=== PATIENT | female | born 1940 | race Caucasian/White ===

== ENCOUNTER 2018-10-28 10:19 | Observation (INO) | payer MEDICARE, OTHER ==
[2018-10-28] MEDS ORDERED: Nitroglycerin 0.4 MG Tab.SL ONE (10:20)
[2018-10-28] MEDS ORDERED: LORazepam 0.5 MG Tab PO ONE (10:40)
[2018-10-28] MEDS ORDERED: Sodium Chloride 0.9% 10 ML Syringe FLUSH PRN (10:43)
[2018-10-28] MEDS ORDERED: LORazepam 0.5 MG Tab ONE (10:53)
--- NOTE | 2018-10-28 11:20 | CR ---
DATE OF SERVICE: 10/28/18 CLINICAL DATA: Chest pain PORTABLE CHEST: No priors. The patient has taken a very poor inspiration. The heart size is at the upper limits of normal. It is probably accentuated by the poor inspiration and projection. The aorta is ectatic. The lungs are clear. No pneumothorax. No pleural effusions. [id number] [facility]
[2018-10-28] MEDS ORDERED: Ondansetron 4 MG/2 ML SDV IV PRN (11:31)
--- NOTE | 2018-10-28 11:44 | EDM.PDOC ---
ED HPI GENERAL MEDICAL PROBLEM - General Chief Complaint: Cardiovascular Problem Stated Complaint: CHEST PALPATATION AND PRESSURE Time Seen by Provider: 10/28/18 10:45 Source of Information: Reports: Patient, EMS History Limitations: Reports: No Limitations - History of Present Illness INITIAL COMMENTS - FREE TEXT/NARRATIVE: This is a 77yo F here for chest pain and palpitations. She has had palpitations her whole life with history of Atrial fibrillation on her holter in the past. She does see cardiology and last saw one a year ago. She states her palpitations was very severe where she had chest pain and has not had this severity in a long time or that she can remember. She states she had a headache and dizziness as well. Denies other health concerns. Patient brought in by EMS. Onset: Sudden Onset Date: 10/28/18 Onset Time: 07:30 Duration: Hour(s): Location: Reports: Chest Quality: Reports: Sharp Severity: Severe Improves with: Reports: None Worsens with: Reports: None - Related Data Allergies Allergy/AdvReac Type Severity Reaction Status Date / Time No Known Allergies Allergy Verified 10/28/18 11:15 Home Meds: Home Meds Diltiazem HCl [Cartia Xt] 180 mg PO DAILY 10/28/18 [History] HCTZ/Triamterene [Dyazide 25-37.5 MG] 1 cap PO DAILY 10/28/18 [History] Metoprolol Succinate [Toprol Xl] 25 mg PO DAILY 10/28/18 [History] Nitroglycerin 0.4 mg SL ASDIRECTED 10/28/18 [History] ED ROS GENERAL - Review of Systems Review Of Systems: ROS reveals no pertinent complaints other than HPI. ED EXAM, GENERAL - Physical Exam Exam: See Below Exam Limited By: No Limitations General Appearance: Alert, WD/WN, Mild Distress Eye Exam: Bilateral Eye: EOMI, PERRL Ears: Normal External Exam Nose: Normal Inspection Throat/Mouth: Normal Inspection Head: Atraumatic, Normocephalic Neck: Normal Inspection Respiratory/Chest: No Respiratory Distress, Lungs Clear, Normal Breath Sounds Cardiovascular: Normal Peripheral Pulses, Regular Rate, Rhythm Peripheral Pulses: 2+: Dorsalis Pedis (L), Dorsalis Pedis (R) GI/Abdominal: Normal Bowel Sounds Back Exam: Normal Inspection Extremities: Normal Inspection Neurological: Alert, Oriented, CN II-XII Intact Psychiatric: Normal Affect, Normal Mood Skin Exam: Warm, Dry, Intact Course - Vital Signs Last Recorded V/S: Last Vital Signs Temp 36.8 C 10/28/18 11:27 Pulse 62 10/28/18 11:27 Resp 18 10/28/18 11:27 BP 171/83 H 10/28/18 11:27 Pulse Ox 99 10/28/18 11:27 - Orders/Labs/Meds Orders: Active Orders 24 hr Category Date Time Status Patient Status [ADT] Routine ADT 10/28/18 11:31 Ordered EKG Documentation Completion [RC] ASDIRECTED Care 10/28/18 10:43 Active Oxygen Therapy [RC] PRN Care 10/28/18 11:31 Ordered Up ad Ingrid [RC] ASDIRECTED Care 10/28/18 11:31 Ordered VTE/DVT Education [RC] Per Unit Routine Care 10/28/18 11:31 Ordered Vital Signs [RC] Q4H Care 10/28/18 11:31 Ordered Heart Healthy Diet [DIET] Diet 10/28/18 Dinner Ordered CBC WITH AUTO DIFF [HEME] AM Lab 10/29/18 05:11 Ordered COMPREHENSIVE METABOLIC PN,CMP [CHEM] AM Lab 10/29/18 05:11 Ordered TROPONIN I [CHEM] Routine Lab 10/28/18 13:40 Ordered TROPONIN I [CHEM] Timed Lab 10/28/18 16:40 Ordered TROPONIN I [CHEM] Timed Lab 10/28/18 20:40 Ordered TROPONIN I [CHEM] Timed Lab 10/29/18 10:40 Ordered Ondansetron [Zofran] Med 10/28/18 11:31 Ordered 4 mg IV Q4H PRN Sodium Chloride 0.9% [Saline Flush] Med 10/28/18 10:43 Active 10 ml FLUSH ASDIRECTED PRN Peripheral IV Insertion Adult [OM.PC] Routine Oth 10/28/18 10:43 Ordered Resuscitation Status Routine Resus Stat 10/28/18 11:31 Ordered Medication Orders Ondansetron HCl (Zofran) 4 mg IV Q4H PRN PRN Reason: Nausea/Vomiting Sodium Chloride (Saline Flush) 10 ml FLUSH ASDIRECTED PRN PRN Reason: Keep Vein Open Last Admin: 10/28/18 10:40 Dose: 10 ml Labs: Laboratory Tests 01/10/19 01/10/19 Range/Units 10:40 10:40 WBC 5.1 (4.0-11.0) K/uL RBC 5.00 (3.80-5.80) M/uL Hgb 13.4 (11.5-16.5) g/dL Hct 41.0 (37.0-47.0) % MCV 82 (76-96) fL MCH 26.8 L (27.0-32.0) pg MCHC 32.7 (31.0-35.0) g/dL RDW 15.8 (11.0-16.0) % Plt Count 286 (150-500) K/uL MPV 9.5 (6.0-10.0) fL Neut % (Auto) 66.0 (45.0-70.0) % Lymph % (Auto) 25.0 (20.0-40.0) % [place] % (Auto) 8.0 (3.0-10.0) % Eos % (Auto) 0.6 L (1.0-5.0) % Baso % (Auto) 0.4 (0.0-0.5) % Neut # (Auto) 3.38 (2.00-7.50) K/uL Lymph # (Auto) 1.28 L (1.50-4.00) K/uL [place] # (Auto) 0.41 (0.20-0.80) K/uL Eos # (Auto) 0.03 L (0.04-0.40) K/uL Baso # (Auto) 0.02 (0.02-0.10) K/uL Sodium 141 (136-145) mmol/L Potassium 3.9 (3.5-5.1) mmol/L Chloride 102 (98-107) mmol/L Carbon Dioxide 26.9 (21.0-32.0) mmol/L Anion Gap 16.0 H (5.0-15.0) mmol/L BUN 14 (8-26) mg/dL Creatinine 1.00 (0.55-1.02) mg/dL Est Cr Clr Drug Dosing TNP Estimated GFR (MDRD) 54 L (>60) MLS/MIN BUN/Creatinine Ratio 14.0 (6-25) Glucose 207 H (74-100) mg/dL Calcium 9.1 (8.5-10.1) mg/dL Total Bilirubin 0.4 (0.0-1.0) mg/dL AST 19 (15-37) U/L ALT 32 (12-78) U/L Alkaline Phosphatase 80 (46-116) U/L Troponin I < 0.017 (0.000-0.060) ng/mL Total Protein 7.5 (6.4-8.2) g/dL Albumin 3.6 (3.4-5.0) g/dL Globulin 3.9 (2.2-4.2) g/dL Albumin/Globulin Ratio 0.9 (0.8-2.0) TSH, Ultra Sensitive 2.521 (0.358-3.740) uIU/mL Meds: Medications Generic Name Dose Route Start Last Admin Trade Name Freq PRN Reason Stop Dose Admin Ondansetron HCl 4 mg 10/28/18 11:31 Zofran IV Q4H PRN Nausea/Vomiting Sodium Chloride 10 ml 10/28/18 10:43 10/28/18 10:40 Saline Flush FLUSH 10 ml ASDIRECTED PRN Administration Keep Vein Open Discontinued Medications Generic Name Dose Route Start Last Admin Trade Name Freq PRN Reason Stop Dose Admin Lorazepam Confirm 10/28/18 10:53 10/28/18 10:54 Ativan Administered 10/28/18 10:54 Not Given Dose 0.5 mg .ROUTE .STK-MED ONE Lorazepam 0.5 mg 10/28/18 10:40 10/28/18 10:54 Ativan PO 10/28/18 10:41 0.5 mg ONETIME ONE Administration Departure - Departure Time of Disposition: 11:45 Disposition: Refer to Observation Condition: Undetermined Clinical Impression: Heart palpitations, History of palpitations, Dizziness, Hypertensive urgency Hypertensive heart disease Qualifiers: Heart failure presence: unspecified whether heart failure present Qualified Code(s): I11.9 - Hypertensive heart disease without heart failure Chest pain Qualifiers: Chest pain type: other chest pain Qualified Code(s): R07.89 - Other chest pain ; R07.8 - Other chest pain Headache Qualifiers: Headache type: unspecified Headache chronicity pattern: acute headache Intractability: intractable Qualified Code(s): R51 - Headache Referrals: PCP,None [Primary Care Provider] - - Problem List & Annotations (1) Chest pain SNOMED Code(s): 25694559 Code(s): R07.9 - CHEST PAIN, UNSPECIFIED Status: Acute Priority: High Current Visit: Yes Qualifiers: Chest pain type: other chest pain Qualified Code(s): R07.89 - Other chest pain; R07.8 - Other chest pain (2) Dizziness SNOMED Code(s): 345194515, 685383060 Code(s): R42 - DIZZINESS AND GIDDINESS Status: Acute Priority: High Current Visit: Yes (3) Headache SNOMED Code(s): 13919616 Code(s): R51 - HEADACHE Status: Acute Priority: High Current Visit: Yes Qualifiers: Headache type: unspecified Headache chronicity pattern: acute headache Intractability: intractable Qualified Code(s): R51 - Headache (4) Heart palpitations SNOMED Code(s): 42083021 Code(s): R00.2 - PALPITATIONS Status: Acute Priority: High Current Visit: Yes (5) History of palpitations SNOMED Code(s): 058576039 Code(s): Z87.898 - PERSONAL HISTORY OF OTHER SPECIFIED CONDITIONS Status: Acute Priority: High Current Visit: Yes (6) Hypertensive heart disease SNOMED Code(s): 63633262 Code(s): I11.9 - HYPERTENSIVE HEART DISEASE WITHOUT HEART FAILURE Status: Acute Priority: High Current Visit: Yes Qualifiers: Heart failure presence: unspecified whether heart failure present Qualified Code(s): I11.9 - Hypertensive heart disease without heart failure (7) Hypertensive urgency SNOMED Code(s): 241683426 Code(s): I16.0 - HYPERTENSIVE URGENCY Status: Acute Priority: High Current Visit: Yes - Problem List Review Problem List Initiated/Reviewed/Updated: Yes - My Orders Last 24 Hours: My Active Orders 10/28/18 10:43 EKG Documentation Completion [RC] ASDIRECTED Sodium Chloride 0.9% [Saline Flush] 10 ml FLUSH ASDIRECTED PRN Peripheral IV Insertion Adult [OM.PC] Routine 10/28/18 11:31 Patient Status [ADT] Routine Oxygen Therapy [RC] PRN Up ad Ingrid [RC] ASDIRECTED VTE/DVT Education [RC] Per Unit Routine Vital Signs [RC] Q4H Ondansetron [Zofran] 4 mg IV Q4H PRN Resuscitation Status Routine 10/28/18 13:40 TROPONIN I [CHEM] Routine 10/28/18 16:40 TROPONIN I [CHEM] Timed 10/28/18 20:40 TROPONIN I [CHEM] Timed 10/28/18 Dinner Heart Healthy Diet [DIET] 10/29/18 05:11 CBC WITH AUTO DIFF [HEME] AM COMPREHENSIVE METABOLIC PN,CMP [CHEM] AM 10/29/18 10:40 TROPONIN I [CHEM] Timed - Assessment/Plan Last 24 Hours: My Active Orders 10/28/18 10:43 EKG Documentation Completion [RC] ASDIRECTED Sodium Chloride 0.9% [Saline Flush] 10 ml FLUSH ASDIRECTED PRN Peripheral IV Insertion Adult [OM.PC] Routine 10/28/18 11:31 Patient Status [ADT] Routine Oxygen Therapy [RC] PRN Up ad Ingrid [RC] ASDIRECTED VTE/DVT Education [RC] Per Unit Routine Vital Signs [RC] Q4H Ondansetron [Zofran] 4 mg IV Q4H PRN Resuscitation Status Routine 10/28/18 13:40 TROPONIN I [CHEM] Routine 10/28/18 16:40 TROPONIN I [CHEM] Timed 10/28/18 20:40 TROPONIN I [CHEM] Timed 10/28/18 Dinner Heart Healthy Diet [DIET] 10/29/18 05:11 CBC WITH AUTO DIFF [HEME] AM COMPREHENSIVE METABOLIC PN,CMP [CHEM] AM 10/29/18 10:40 TROPONIN I [CHEM] Timed Plan: Patient placed in observation for cardiac monitoring and management. We will do serial troponins due to her prior cardiac history. Patient improved with nitro and has been given 324mg of aspirin. We will continue to monitor patient's elevated BP and manage. Patient does state she has White coat hypertension.
[2018-10-28] MEDS ORDERED: Nitroglycerin 0.4 MG Tab.SL SL PRN (19:10)
[2018-10-28] MEDS ORDERED: Diltiazem 180 MG Cap.CD ONE (19:22)
[2018-10-28] MEDS: LORazepam 1 MG Tab PO SCH (21:36)
[2018-10-28] MEDS: Diltiazem 180 MG Cap.CD PO SCH (21:36)
[2018-10-29] MEDS ORDERED: Metoprolol Succinate 25 MG Tab.ER PO SCH (08:00)
[2018-10-29] MEDS ORDERED: Hydrochlorothiazide/Triamterene 25-37.5 MG Cap PO SCH (08:00)
[2018-10-29] MEDS: Diltiazem 180 MG Cap.CD PO SCH (08:28)
[2018-10-29] MEDS: LORazepam 1 MG Tab PO SCH (08:28)
[2018-10-29] MEDS ORDERED: Diltiazem IR 60 MG Tab ONE (15:00)
--- NOTE | 2018-10-29 15:42 | PCM.DCSUM1 ---
Discharge Summary - Discharge Data Discharge Date: 10/29/18 Discharge Disposition: Home, Self-Care 01 Condition: Good - Discharge Diagnosis/Problem(s) (1) Chest pain SNOMED Code(s): 17142806 ICD Code: R07.9 - CHEST PAIN, UNSPECIFIED Status: Acute Priority: High Current Visit: Yes Qualifiers: Chest pain type: other chest pain Qualified Code(s): R07.89 - Other chest pain; R07.8 - Other chest pain (2) Dizziness SNOMED Code(s): 007254974, 511895328 ICD Code: R42 - DIZZINESS AND GIDDINESS Status: Resolved Priority: High Current Visit: Yes (3) Headache SNOMED Code(s): 21179638 ICD Code: R51 - HEADACHE Status: Resolved Priority: High Current Visit : Yes Qualifiers: Headache type: unspecified Headache chronicity pattern: acute headache Intractability: intractable Qualified Code(s): R51 - Headache (4) Heart palpitations SNOMED Code(s): 58158848 ICD Code: R00.2 - PALPITATIONS Status: Resolved Priority: High Current Visit: Yes (5) History of palpitations SNOMED Code(s): 569216915 ICD Code: Z87.898 - PERSONAL HISTORY OF OTHER SPECIFIED CONDITIONS Status: Chronic Priority: High Current Visit: Yes (6) Hypertensive heart disease SNOMED Code(s): 96443512 ICD Code: I11.9 - HYPERTENSIVE HEART DISEASE WITHOUT HEART FAILURE Status: Chronic Priority: High Current Visit: Yes Qualifiers: Heart failure presence: unspecified whether heart failure present Qualified Code(s): I11.9 - Hypertensive heart disease without heart failure (7) Hypertensive urgency SNOMED Code(s): 812739044 ICD Code: I16.0 - HYPERTENSIVE URGENCY Status: Resolved Priority: High Current Visit: Yes - Patient Instructions Diet: Heart Healthy Diet Activity: As Tolerated Driving: Do Not Drive - Discharge Plan Home Medications: Home Meds Diltiazem HCl [Cartia Xt] 180 mg PO DAILY 10/28/18 [History] HCTZ/Triamterene [Dyazide 25-37.5 MG] 1 cap PO DAILY 10/28/18 [History] Metoprolol Succinate [Toprol Xl] 25 mg PO DAILY 10/28/18 [History] Nitroglycerin 0.4 mg SL ASDIRECTED 10/28/18 [History] Patient Handouts: Diltiazem extended-release capsules or tablets, Palpitations , [id number], Dizziness, [id number] Forms: ED Department Discharge Referrals: PCP,None [Primary Care Provider] - - Discharge Summary/Plan Comment DC Time >30 min.: Yes Discharge Summary/Plan Comment: Counseled on discharge and close monitoring. Discussed medication change, side effects, management and f/u. Patient meds sent to [facility] for 14 days and 90 refills sent to [facility]. Patient to f/u in 1 week in clinic and sooner or in ER if any issues or concerns to call the hospital. F/u as directed. Patient should f/u with personal Obstetrical Anesthesiologist as well. - Patient Data Vitals - Most Recent: Last Vital Signs Temp 37.1 C 10/29/18 11:52 Pulse 74 10/29/18 15:05 Resp 18 10/29/18 11:52 BP 141/66 H 10/29/18 15:05 Pulse Ox 96 10/29/18 11:52 Weight - Most Recent: 81.76 kg Lab Results - Last 24 hrs: Laboratory Results - last 24 hr 10/28/18 10/28/18 10/29/18 Range/Units 16:50 20:30 07:30 WBC 5.5 (4.0-11.0) K/uL RBC 4.84 (3.80-5.80) M/uL Hgb 12.8 (11.5-16.5) g/dL Hct 40.3 (37.0-47.0) % MCV 83 (76-96) fL MCH 26.4 L (27.0-32.0) pg MCHC 31.8 (31.0-35.0) g/dL RDW 16.2 H (11.0-16.0) % Plt Count 279 (150-500) K/uL MPV 9.9 (6.0-10.0) fL Neut % (Auto) 54.9 (45.0-70.0) % Lymph % (Auto) 32.5 (20.0-40.0) % [place] % (Auto) 11.1 H (3.0-10.0) % Eos % (Auto) 1.1 (1.0-5.0) % Baso % (Auto) 0.4 (0.0-0.5) % Neut # (Auto) 3.02 (2.00-7.50) K/uL Lymph # (Auto) 1.79 (1.50-4.00) K/uL [place] # (Auto) 0.61 (0.20-0.80) K/uL Eos # (Auto) 0.06 (0.04-0.40) K/uL Baso # (Auto) 0.02 (0.02-0.10) K/uL Sodium (136-145) mmol/L Potassium (3.5-5.1) mmol/L Chloride (98-107) mmol/L Carbon Dioxide (21.0-32.0) mmol/L Anion Gap (5.0-15.0) mmol/L BUN (8-26) mg/dL Creatinine (0.55-1.02) mg/dL Est Cr Clr Drug Dosing mL/min Estimated GFR (MDRD) (>60) MLS/MIN BUN/Creatinine Ratio (6-25) Glucose (74-100) mg/dL Calcium (8.5-10.1) mg/dL Total Bilirubin (0.0-1.0) mg/dL AST (15-37) U/L ALT (12-78) U/L Alkaline Phosphatase (46-116) U/L Troponin I < 0.017 < 0.017 (0.000-0.060) ng/mL Total Protein (6.4-8.2) g/dL Albumin (3.4-5.0) g/dL Globulin (2.2-4.2) g/dL Albumin/Globulin Ratio (0.8-2.0) 10/29/18 10/29/18 Range/Units 07:30 07:30 WBC (4.0-11.0) K/uL RBC (3.80-5.80) M/uL Hgb (11.5-16.5) g/dL Hct (37.0-47.0) % MCV (76-96) fL MCH (27.0-32.0) pg MCHC (31.0-35.0) g/dL RDW (11.0-16.0) % Plt Count (150-500) K/uL MPV (6.0-10.0) fL Neut % (Auto) (45.0-70.0) % Lymph % (Auto) (20.0-40.0) % [place] % (Auto) (3.0-10.0) % Eos % (Auto) (1.0-5.0) % Baso % (Auto) (0.0-0.5) % Neut # (Auto) (2.00-7.50) K/uL Lymph # (Auto) (1.50-4.00) K/uL [place] # (Auto) (0.20-0.80) K/uL Eos # (Auto) (0.04-0.40) K/uL Baso # (Auto) (0.02-0.10) K/uL Sodium 145 (136-145) mmol/L Potassium 4.1 (3.5-5.1) mmol/L Chloride 107 (98-107) mmol/L Carbon Dioxide 27.8 (21.0-32.0) mmol/L Anion Gap 14.3 (5.0-15.0) mmol/L BUN 15 (8-26) mg/dL Creatinine 0.97 (0.55-1.02) mg/dL Est Cr Clr Drug Dosing 37.81 mL/min Estimated GFR (MDRD) 56 L (>60) MLS/MIN BUN/Creatinine Ratio 15.5 (6-25) Glucose 145 H (74-100) mg/dL Calcium 8.9 (8.5-10.1) mg/dL Total Bilirubin 0.4 (0.0-1.0) mg/dL AST 17 (15-37) U/L ALT 27 (12-78) U/L Alkaline Phosphatase 71 (46-116) U/L Troponin I 0.017 (0.000-0.060) ng/mL Total Protein 6.8 (6.4-8.2) g/dL Albumin 3.1 L (3.4-5.0) g/dL Globulin 3.7 (2.2-4.2) g/dL Albumin/Globulin Ratio 0.8 (0.8-2.0) Med Orders - Current: Current Medications Diltiazem HCl (Cardizem Cd) 180 mg PO DAILY [facility] Last Admin: 10/29/18 08:28 Dose: 180 mg Lorazepam (Ativan) 1 mg PO BID [facility] Last Admin: 10/29/18 08:28 Dose: 1 mg Metoprolol Succinate (Toprol Xl) 25 mg PO DAILY [facility] Last Admin: 10/29/18 08:29 Dose: 25 mg Nitroglycerin (Nitrostat) 0.4 mg SL Q5M PRN PRN Reason: Chest Pain Ondansetron HCl (Zofran) 4 mg IV Q4H PRN PRN Reason: Nausea/Vomiting Sodium Chloride (Saline Flush) 10 ml FLUSH ASDIRECTED PRN PRN Reason: Keep Vein Open Last Admin: 10/28/18 10:40 Dose: 10 ml Triamterene/HCTZ (Dyazide 25-37.5 Mg) 1 each PO DAILY [facility] Last Admin: 10/29/18 08:29 Dose: 1 each Discontinued Medications Diltiazem HCl (Cardizem Cd) Confirm Administered Dose 180 mg .ROUTE .STK-MED ONE Stop: 10/28/18 19:23 Last Admin: 10/28/18 21:26 Dose: Not Given Diltiazem HCl (Cardizem) Confirm Administered Dose 60 mg .ROUTE .STK-MED ONE Stop: 10/29/18 15:01 Last Admin: 10/29/18 15:05 Dose: 60 mg Lorazepam (Ativan) Confirm Administered Dose 0.5 mg .ROUTE .STK-MED ONE Stop: 10/28/18 10:54 Last Admin: 10/28/18 10:54 Dose: Not Given Lorazepam (Ativan) 0.5 mg PO ONETIME ONE Stop: 10/28/18 10:41 Last Admin: 10/28/18 10:54 Dose: 0.5 mg
== END 2018-10-29 15:15 | disposition home or self-care (01) ==
LOC: LB.ED 10:19 → LB.MS 11:31
PROVIDERS: ADMIT Family Medicine; ATTEND Family Medicine
DX: R07.89 Other chest pain (principal); R42 Dizziness and giddiness; R51 Headache; R00.2 Palpitations; I11.9 Hypertensive heart disease without heart failure; I16.0 Hypertensive urgency; Z87.898 Personal history of other specified conditions; Z79.899 Other long term (current) drug therapy
CPT/HCPCS: 0296T; 0297T; 36415; 71045; 80053; 84443; 84484; 85025; 93005; 96374; 99285; A9270; A0425; A0429

== ENCOUNTER 2020-04-25 03:21 | Emergency (ER) | payer MEDICARE, OTHER ==
[2020-04-25] MEDS ORDERED: Aspirin 81 MG Tab.Chew PO ONE (03:58)
[2020-04-25] MEDS ORDERED: Nitroglycerin 0.4 MG Tab.SL SL PRN (03:59)
[2020-04-25] MEDS ORDERED: fentaNYL 100 MCG/2 ML SDV IVPUSH ONE (04:07)
[2020-04-25] MEDS ORDERED: Nitroglycerin/D5W 25 MG/250 ML BOTTLE IV SCH (04:15)
--- NOTE | 2020-04-25 04:19 | EDM.PDOC ---
ED HPI GENERAL MEDICAL PROBLEM - General Chief Complaint: ENT Problem Stated Complaint: Throat Pain Time Seen by Provider: 04/25/20 03:55 Source of Information: Reports: Patient History Limitations: Reports: No Limitations - History of Present Illness INITIAL COMMENTS - FREE TEXT/NARRATIVE: Patient is a 79 y/o female, with PMHx significant for quadruple bypass in December 2019, AFIB (on coumadin), left carotid stenosis, HTN, DM, and CKD stage III, who presents via EMS for chest pain. She describes the pain as pressure, non- radiating, and 6/10 intensity. Patient took a baby aspirin and nitro x 2 with some relief. She denies any vision changes, dizziness, VILLA, SOB, abdominal pain, N/V/D, or numbness/tingling. Chest Pain Score (Numeric/FACES): 4 - Related Data Allergies Allergy/AdvReac Type Severity Reaction Status Date / Time No Known Allergies Allergy Verified 10/28/18 11:15 Home Meds: Home Meds HCTZ/Triamterene [Dyazide 25-37.5 MG] 1 cap PO DAILY 10/28/18 [History] Metoprolol Succinate [Toprol Xl] 25 mg PO DAILY 10/28/18 [History] Nitroglycerin 0.4 mg SL ASDIRECTED 10/28/18 [History] dilTIAZem HCL [Cartia Xt] 180 mg PO DAILY 10/28/18 [History] Past Medical History Cardiovascular History: Reports: High Cholesterol, Other (See Below) Other Cardiovascular History: Palpitations [employer] History: Reports: Neurological History: Reports: Vertigo Social & Family History - Family History Family Medical History: Noncontributory - Caffeine Use Caffeine Use: Reports: None ED ROS GENERAL - Review of Systems Review Of Systems: Comprehensive ROS is negative, except as noted in HPI. ED EXAM, GENERAL - Physical Exam Exam: See Below Exam Limited By: No Limitations General Appearance: Alert, No Apparent Distress Eye Exam: Bilateral Eye: Normal Inspection, PERRL Neck: Normal Inspection, Supple, Non-Tender, Full Range of Motion Respiratory/Chest: No Respiratory Distress, Lungs Clear, Normal Breath Sounds, No Accessory Muscle Use, Chest Non-Tender Cardiovascular: Normal Peripheral Pulses, Regular Rate, Rhythm, No Edema Peripheral Pulses: 2+: Radial (L), Radial (R), Posterior Tibial (L), Posterior Tibial (R), Dorsalis Pedis (L), Dorsalis Pedis (R) GI/Abdominal: Normal Bowel Sounds, Soft, Non-Tender, No Distention Neurological: Alert, Oriented, CN II-XII Intact, Normal Cognition, No Motor/Sensory Deficits Skin Exam: Warm, Dry, Intact EKG INTERPRETATION EKG Date: 04/25/20 Time: 03:51 Rhythm: Other Rate (Beats/Min): 58 [place]: Normal P-Wave: Present QRS: Normal ST-T: Other QT: Normal (sinus bradycardia with 1st degree AV block; ST/t wave flattening diffusely) Comparison: Other: (1st degree AV block in previous EKG (04 January 2020)) Course - Vital Signs Text/Narrative:: Patient placed on nitro gtt and given aspirin 324 mg. 2 L NC given for oxygen of 90% and it improved to 98%. Chest pain was rated at a 6/10 and improved to 4/10 after fentanyl and nitro gtt. Blood pressure improved from systolic [address] Machuca is the accepting physician (hospitalist) at [facility]. [facility] ground will transfer patient. Last Recorded V/S: Last Vital Signs Temp 36.3 C 04/25/20 04:01 Pulse 60 04/25/20 05:23 Resp 66 H 04/25/20 05:23 BP 197/77 H 04/25/20 05:23 Pulse Ox 97 04/25/20 05:23 - Orders/Labs/Meds Orders: Active Orders 24 hr Category Date Time Status EKG Documentation Completion [RC] STAT Care 04/25/20 03:55 Active Chest 1V Frontal [CR] Stat Exams 04/25/20 03:58 Taken Nitroglycerin/D5W [Nitroglycerin 25 MG/D5W 250 ML] Med 04/25/20 04:15 Active 25 mg in 250 ml IV TITRATE Medication Orders Nitroglycerin/Dextrose (Nitroglycerin 25 Mg/D5w 250 Ml) 25 mg in 250 mls @ 6 m ls/hr IV TITRATE CEDRICK; Protocol Last Titration: 04/25/20 04:41 Dose: 15 mcg/min, 9 mls/hr Documented by: Titration: 04/25/20 04:29 Dose: 10 mcg/min, 6 mls/hr Documented by: Admin: 04/25/20 04:22 Dose: 5 mcg/min, 3 mls/hr Documented by: JOHN Labs: Laboratory Tests 04/25/20 04/25/20 04/25/20 Range/Units 04:00 04:00 04:00 WBC 6.3 (4.0-11.0) K/uL RBC 4.11 (3.80-5.80) M/uL Hgb 10.2 L (11.5-16.5) g/dL Hct 33.1 L (37.0-47.0) % MCV 81 (76-96) fL MCH 24.8 L (27.0-32.0) pg MCHC 30.8 L (31.0-35.0) g/dL RDW 18.7 H (11.0-16.0) % Plt Count 271 (150-500) K/uL MPV 9.3 (6.0-10.0) fL Neut % (Auto) 66.8 (45.0-70.0) % Lymph % (Auto) 20.5 (20.0-40.0) % [place] % (Auto) 10.8 H (3.0-10.0) % Eos % (Auto) 1.6 (1.0-5.0) % Baso % (Auto) 0.3 (0.0-0.5) % Neut # (Auto) 4.19 (2.00-7.50) K/uL Lymph # (Auto) 1.29 L (1.50-4.00) K/uL [place] # (Auto) 0.68 (0.20-0.80) K/uL Eos # (Auto) 0.10 (0.04-0.40) K/uL Baso # (Auto) 0.02 (0.02-0.10) K/uL PT (9.0-11.5) sec INR (1.0-3.5) APTT (24.4-33.2) SECONDS Sodium 143 (136-145) mmol/L Potassium 3.8 D (3.5-5.1) mmol/L Chloride 106 (98-107) mmol/L Carbon Dioxide 27.2 (21.0-32.0) mmol/L Anion Gap 13.6 (5.0-15.0) mmol/L BUN 19 (8-26) mg/dL Creatinine 1.13 H D (0.55-1.02) mg/dL Est Cr Clr Drug Dosing 31.46 mL/min Estimated GFR (MDRD) 47 L (>60) MLS/MIN BUN/Creatinine Ratio 16.8 (6-25) Glucose 135 H (74-100) mg/dL Calcium 8.4 L (8.5-10.1) mg/dL Total Bilirubin 0.3 (0.0-1.0) mg/dL AST 30 (15-37) U/L ALT 38 (12-78) U/L Alkaline Phosphatase 67 (46-116) U/L Troponin I < 0.017 (0.000-0.060) ng/mL B-Natriuretic Peptide 2775 H (0-450) pg/mL Total Protein 6.9 (6.4-8.2) g/dL Albumin 3.5 (3.4-5.0) g/dL Globulin 3.4 (2.2-4.2) g/dL Albumin/Globulin Ratio 1.0 (0.8-2.0) 04/25/20 04/25/20 Range/Units 04:00 04:00 WBC (4.0-11.0) K/uL RBC (3.80-5.80) M/uL Hgb (11.5-16.5) g/dL Hct (37.0-47.0) % MCV (76-96) fL MCH (27.0-32.0) pg MCHC (31.0-35.0) g/dL RDW (11.0-16.0) % Plt Count (150-500) K/uL MPV (6.0-10.0) fL Neut % (Auto) (45.0-70.0) % Lymph % (Auto) (20.0-40.0) % [place] % (Auto) (3.0-10.0) % Eos % (Auto) (1.0-5.0) % Baso % (Auto) (0.0-0.5) % Neut # (Auto) (2.00-7.50) K/uL Lymph # (Auto) (1.50-4.00) K/uL [place] # (Auto) (0.20-0.80) K/uL Eos # (Auto) (0.04-0.40) K/uL Baso # (Auto) (0.02-0.10) K/uL PT 10.5 D (9.0-11.5) sec INR 1.0 D (1.0-3.5) APTT 23.2 L (24.4-33.2) SECONDS Sodium (136-145) mmol/L Potassium (3.5-5.1) mmol/L Chloride (98-107) mmol/L Carbon Dioxide (21.0-32.0) mmol/L Anion Gap (5.0-15.0) mmol/L BUN (8-26) mg/dL Creatinine (0.55-1.02) mg/dL Est Cr Clr Drug Dosing mL/min Estimated GFR (MDRD) (>60) MLS/MIN BUN/Creatinine Ratio (6-25) Glucose (74-100) mg/dL Calcium (8.5-10.1) mg/dL Total Bilirubin (0.0-1.0) mg/dL AST (15-37) U/L ALT (12-78) U/L Alkaline Phosphatase (46-116) U/L Troponin I (0.000-0.060) ng/mL B-Natriuretic Peptide (0-450) pg/mL Total Protein (6.4-8.2) g/dL Albumin (3.4-5.0) g/dL Globulin (2.2-4.2) g/dL Albumin/Globulin Ratio (0.8-2.0) Meds: Medications Generic Name Dose Route Start Last Admin Trade Name Freq PRN Reason Stop Dose Admin Nitroglycerin/Dextrose 25 mg in 250 mls @ 6 mls/hr 04/25/20 04:15 04/25/20 04:41 Nitroglycerin 25 Mg/D5w 250 Ml IV 15 mcg/min TITRATE CEDRICK 9 mls/hr Titration Protocol 10 MCG/MIN Discontinued Medications Generic Name Dose Route Start Last Admin Trade Name Freq PRN Reason Stop Dose Admin Aspirin 324 mg 04/25/20 03:58 04/25/20 05:03 Aspirin PO 04/25/20 03:59 324 mg ONETIME ONE Administration Fentanyl 50 mcg 04/25/20 04:07 04/25/20 04:21 Sublimaze IVPUSH 04/25/20 04:08 50 mcg ONETIME ONE Administration Nitroglycerin 0.4 mg 04/25/20 03:59 Nitrostat SL Q5M PRN Chest Pain Departure - Departure Time of Disposition: 05:32 Disposition: DC/Tfer to Other 70 Reason for Transfer *Q: Other Condition: Fair Clinical Impression: Chest pain Qualifiers: Chest pain type: other chest pain Qualified Code(s): R07.89 - Other chest pain Sepsis Event Note (ED) - Focused Exam Vital Signs: Vital Signs Temp Pulse Resp BP Pulse Ox 04/25/20 05:23 60 66 H 197/77 H 97 04/25/20 05:06 53 L 16 188/78 H 98 04/25/20 04:51 56 L 16 181/74 H 97 04/25/20 04:35 56 L 16 184/80 H 97 04/25/20 04:26 56 L 14 194/78 H 96 04/25/20 04:01 36.3 C 58 L 16 213/89 H 96 - My Orders Last 24 Hours: My Active Orders 04/25/20 03:55 EKG Documentation Completion [RC] STAT 04/25/20 03:58 Chest 1V Frontal [CR] Stat 04/25/20 04:15 Nitroglycerin/D5W [Nitroglycerin 25 MG/D5W 250 ML] 25 mg in 250 ml IV TITRATE - Assessment/Plan Last 24 Hours: My Active Orders 04/25/20 03:55 EKG Documentation Completion [RC] STAT 04/25/20 03:58 Chest 1V Frontal [CR] Stat 04/25/20 04:15 Nitroglycerin/D5W [Nitroglycerin 25 MG/D5W 250 ML] 25 mg in 250 ml IV TITRATE
--- NOTE | 2020-04-25 07:17 | CR ---
DATE OF SERVICE: 04/25/20 CLINICAL DATA: cp AP CHEST: Comparison is made to a prior exam dated 10/28/18. The patient has taken a very poor inspiration and is in an apical lordotic position. The patient is status post median sternotomy. The heart is enlarged. The pulmonary vasculature appears prominent with cephalization flow suggesting pulmonary venous congestion or fluid overload. The lungs are clear. No pneumothorax. No pleural effusions. [id number] MTDD
== END 2020-04-25 05:40 ==
LOC: LB.ED 03:21
DX: R07.89 Other chest pain (principal); Z79.899 Other long term (current) drug therapy
CPT/HCPCS: 36415; 71045; 80053; 83880; 84484; 85025; 85610; 85730; 93005; 96365; 96375; 99285-25; A0425; A0429; A9270-GY; J3010; J3490

== ENCOUNTER 2020-05-29 18:10 | Emergency (ER) | payer MEDICARE, OTHER ==
--- NOTE | 2020-05-30 07:12 | ER ---
HISTORY OF PRESENT ILLNESS: A 79-year-old female who comes in by ambulance with complaints of pain from the left ear down to the left elbow area. She states that it just started an hour to an hour and a half ago at home. She was visiting with a neighbor when she has noticed this sudden fairly severe pain. She tells me it is better now. She currently rates her pain at 4/10. She has not had any problems with chest pain, coughing, shortness of breath, or vomiting. She has had a little bit of nausea and she has been a little dizzy. The patient denies falling. She has not had any recent injuries. OBJECTIVE: GENERAL APPEARANCE: The patient is awake and alert. She is quite pleasant and talkative. VITAL SIGNS: Reviewed. Blood pressure initially 195/82, temperature is 97.0, O2 sats are 97% on room air, respiratory rate 16. HEENT: Eyes pupils equal, round, and reactive to light. EOMs are grossly intact. Oral mucous membranes are slightly dry. Tonsils are not enlarged or injected. Pharynx not inflamed. NECK: Supple. I cannot reproduce any pain involving the neck area, but the upper arm is tender with palpation. SKIN: Warm and dry. There is no sign of bruising or discoloration. LUNGS: Clear with slightly reduced air exchange throughout the lung mar[place]. CARDIAC: Heart sounds distinct. S1, S2 present. I do not hear any murmurs. SKIN: Warm and dry. ABDOMEN: Soft, nontender. EXTREMITIES: There is no swelling of the lower extremities tonight. The patient did have 2 nitroglycerin tablets, 1 tablet at home and 1 en route per ambulance. She does not feel it helped her pain at all. She has history of coronary artery disease and had a triple vessel CABG repair in December 2019. LABORATORY DATA AND X-RAY: CBC shows a hemoglobin of 10.3, which is slightly up from the last one she had done in April, which was 9 point something otherwise normal. PT/INR reveal an INR 1.5, PT 15.1. Comprehensive metabolic panel is unremarkable. GFR is 42, but that is not new for her. Troponin is negative. An EKG was also obtained showing a normal sinus rhythm without ST elevation or depression. The patient's blood pressure was rechecked with a reading of 152/63 while waiting for the lab results. The patient's pain continued to improve. She states it was a 2 or maybe a 3 on a pain scale. She was able to get up and go to the bathroom without any discomfort, dizziness, or weakness. DIAGNOSIS: Left arm pain, noncardiac in nature. TREATMENT PLAN: The patient will be discharged home. I advised her to use Tylenol as needed for her left arm pain. Further conversation reveals that she has been using nitroglycerin for sensation of her throat tightening a little bit at home. She takes a nitroglycerin most of the days at least once. I advised the patient to follow up with her primary care provider, Dr. Alfonso as soon as she can get in to see him to review her medications. She may need some med adjustments. Activity should be light duty as tolerated. The patient has no further questions and agrees with the treatment plan. CRS/MODL /[id number]
--- NOTE | 2020-05-31 10:47 | CR ---
DATE OF SERVICE: 05/29/20 CLINICAL DATA: left arm pain - Hx of CAD. AP CHEST: Comparison is made to a prior exam dated 04/25/20. The patient has taken a poor inspiration and is in an apical lordotic position. The patient is status post median sternotomy. The heart remains enlarged, unchanged. The pulmonary vasculature remains prominent with cephalization flow suggesting pulmonary venous congestion or fluid overload. There is subtle increased density in the right lower lung inferior to the right hilum consistent with infiltrate or atelectasis. Pneumonia should be considered. No pneumothorax. No pleural effusions. [id number] [facility]
== END 2020-05-29 20:02 | disposition home or self-care (01) ==
LOC: LB.ED 18:10
DX: M79.602 Pain in left arm (principal); I25.10 Atherosclerotic heart disease of native coronary artery without angina pectoris; Z95.1 Presence of aortocoronary bypass graft
CPT/HCPCS: 36415; 71045; 80053; 84484; 85025; 85610; 93005; 99283; 99284-25

== ENCOUNTER 2022-09-06 16:10 | Emergency (ER) | payer OTHER, MEDICARE | END 2022-09-06 18:20 | disposition home or self-care (01) | LOC: LB.ED 16:10 | DX: S70.11XA Contusion of right thigh, initial encounter (principal); S70.01XA Contusion of right hip, initial encounter; I25.2 Old myocardial infarction; Z95.1 Presence of aortocoronary bypass graft; Z79.82 Long term (current) use of aspirin; Z79.899 Other long term (current) drug therapy; W18.30XA Fall on same level, unspecified, initial encounter; Y92.410 Unspecified street and highway as the place of occurrence of the external cause | CPT/HCPCS: 72170; 73552-RT; 99283 ==

== ENCOUNTER 2023-04-09 12:18 | Emergency (ER) | payer MEDICARE, OTHER ==
[2023-04-09 14:42] LABS: BASOPHILS ABSOLUTE AUTO 0.02 K/uL (0.02-0.10); BASOPHILS PERCENT AUTO 0.2 % (0.0-0.5); EOSINOPHILS ABSOLUTE AUTO 0.02 K/uL (0.04-0.40); EOSINOPHILS PERCENT AUTO 0.2 % (1.0-5.0); HEMATOCRIT 37.1 % (37.0-47.0); HEMOGLOBIN 11.8 g/dL (11.5-16.5); LYMPHOCYTES ABSOLUTE AUTO 1.52 K/uL (1.50-4.00); LYMPHOCYTES PERCENT AUTO 15.9 % (20.0-40.0); MEAN CORPUSCULAR HEMOGLOBIN 26.5 pg (27.0-32.0); MEAN CORPUSCULAR HGB CONC 31.8 g/dL (31.0-35.0); MEAN CORPUSCULAR VOLUME 83 fL (76-96); MEAN PLATELET VOLUME 9.7 fL (6.0-10.0); MONOCYTES ABSOLUTE AUTO 1.01 K/uL (0.20-0.80); MONOCYTES PERCENT AUTO 10.6 % (3.0-10.0); NEUTROPHILS PERCENT AUTO 73.1 % (45.0-70.0); PLATELET COUNT,PLT 231 K/uL (150-500); RED BLOOD CELL COUNT 4.45 M/uL (3.80-5.80); RED CELL DISTRIBUTION WIDTH 16.8 % (11.0-16.0); WHITE BLOOD CELL COUNT,WBC 9.6 K/uL (4.0-11.0)
[2023-04-09 15:10] LABS: PROTHROMBIN TIME 10.2 sec (9.0-11.5)
[2023-04-09 15:11] LABS: A/G RATIO 0.8 (0.8-2.0); ALANINE AMINOTRANSFERASE,ALT 27 U/L (12-78); ALBUMIN 3.3 g/dL (3.4-5.0); ALKALINE PHOSPHATASE 75 U/L (46-116); ANION GAP 10.7 mmol/L (5.0-15.0); ASPARTATE AMNIOTRANSFERASE,AST 13 U/L (15-37); BILIRUBIN TOTAL 0.6 mg/dL (0.0-1.0); BLOOD UREA NITROGEN,BUN 12 mg/dL (8-26); BUN/CREATININE RATIO 11.4 (6-25); CARBON DIOXIDE,CO2 31.8 mmol/L (21.0-32.0); CHLORIDE,CL 101 mmol/L (98-107); CREATININE 1.05 mg/dL (0.55-1.02); ESTIMATED GFR 54 mL/min (>60); GLUCOSE RANDOM 211 mg/dL (74-100); POTASSIUM,K 3.5 mmol/L (3.5-5.1); PROTEIN TOTAL,TP 7.6 g/dL (6.4-8.2); SODIUM,NA 140 mmol/L (136-145)
[2023-04-09 15:15] LABS: MAGNESIUM 2.2 mg/dL (1.8-2.4); TROPONIN I HIGH SENSITIVITY 17.5 pg/ml (<=60.4)
== END 2023-04-09 16:45 | disposition home or self-care (01) ==
LOC: LB.ED 12:18
DX: R53.1 Weakness (principal); I25.2 Old myocardial infarction; Z79.82 Long term (current) use of aspirin; Z79.01 Long term (current) use of anticoagulants; Z79.899 Other long term (current) drug therapy
CPT/HCPCS: 36415; 71045; 80053; 83605; 83735; 83880; 84484; 85025; 85610; 85730; 93005; 99285

== ENCOUNTER 2023-10-15 08:39 | Day surgery (SDC) | payer MEDICARE, OTHER ==
[2023-10-15] MEDS: Sodium Chloride 0.9% 1,000 ML IV SCH (09:32)
[2023-10-15] MEDS ORDERED: Propofol 200 MG/20 ML SDV ONE (10:30)
[2023-10-15] MEDS ORDERED: Ondansetron 4 MG/2 ML SDV ONE (10:30)
== END 2023-10-15 11:45 | disposition home or self-care (01) ==
LOC: LB.SDS 08:39
PROVIDERS: ATTEND Surgery
DX: K22.89 Other specified disease of esophagus (principal); R13.10 Dysphagia, unspecified; I11.9 Hypertensive heart disease without heart failure
CPT/HCPCS: J2405; J2704; J7030

== ENCOUNTER 2023-10-23 16:42 | Emergency (ER) | payer MEDICARE, OTHER ==
[2023-10-23 17:36] LABS: BASOPHILS ABSOLUTE AUTO 0.02 K/uL (0.02-0.10); BASOPHILS PERCENT AUTO 0.2 % (0.0-0.5); EOSINOPHILS ABSOLUTE AUTO 0.03 K/uL (0.04-0.40); EOSINOPHILS PERCENT AUTO 0.4 % (1.0-5.0); HEMATOCRIT 35.2 % (37.0-47.0); HEMOGLOBIN 10.7 g/dL (11.5-16.5); LYMPHOCYTES ABSOLUTE AUTO 1.16 K/uL (1.50-4.00); LYMPHOCYTES PERCENT AUTO 14.5 % (20.0-40.0); MEAN CORPUSCULAR HEMOGLOBIN 24.3 pg (27.0-32.0); MEAN CORPUSCULAR HGB CONC 30.4 g/dL (31.0-35.0); MEAN CORPUSCULAR VOLUME 80 fL (76-96); MEAN PLATELET VOLUME 9.8 fL (6.0-10.0); MONOCYTES ABSOLUTE AUTO 0.53 K/uL (0.20-0.80); MONOCYTES PERCENT AUTO 6.6 % (3.0-10.0); NEUTROPHILS ABSOLUTE AUTO 6.27 K/uL (2.00-7.50); NEUTROPHILS PERCENT AUTO 78.3 % (45.0-70.0); PLATELET COUNT,PLT 227 K/uL (150-500); RED CELL DISTRIBUTION WIDTH 18.1 % (11.0-16.0)
[2023-10-23] MEDS ORDERED: Aspirin 81 MG Tab.Chew PO ONE (17:37)
[2023-10-23] MEDS ORDERED: Nitroglycerin 0.4 MG Tab.SL SL ONE (17:38)
[2023-10-23 17:49] LABS: A/G RATIO 0.9 (0.8-2.0); ALBUMIN 3.6 g/dL (3.4-5.0); ANION GAP 14.4 mmol/L (5.0-15.0); BILIRUBIN TOTAL 0.5 mg/dL (0.0-1.0); BUN/CREATININE RATIO 15.5 (6-25); CALCIUM 9.4 mg/dL (8.5-10.1); CARBON DIOXIDE,CO2 28.7 mmol/L (21.0-32.0); CREATININE 1.03 mg/dL (0.55-1.02); EST CRCL DRUG DOSING (CG) 32.87 mL/min; POTASSIUM,K 4.1 mmol/L (3.5-5.1); PROTEIN TOTAL,TP 7.4 g/dL (6.4-8.2); TROPONIN I HIGH SENSITIVITY 23.6 pg/ml (<=60.4)
[2023-10-23] MEDS ORDERED: Ondansetron 4 MG/2 ML SDV IVPUSH ONE (17:59)
[2023-10-23] MEDS ORDERED: GI Cocktail Oral Solution 30 ML PO ONE (17:59)
[2023-10-23 18:01] LABS: PTT,PARTIAL THROMBOPLSTIN TIME 27.6 SECONDS (24.4-33.2)
[2023-10-23 18:02] LABS: PROTHROMBIN TIME 10.7 sec (9.0-11.5)
[2023-10-23] MEDS ORDERED: Ondansetron 4 MG/2 ML SDV ONE (18:05)
== END 2023-10-23 19:26 | disposition home or self-care (01) ==
LOC: LB.ED 16:42
DX: K21.9 Gastro-esophageal reflux disease without esophagitis (principal); R07.89 Other chest pain; I10 Essential (primary) hypertension; I25.2 Old myocardial infarction; Z79.82 Long term (current) use of aspirin
CPT/HCPCS: 36415; 71046; 80053; 84484; 85025; 85610; 85730; 86141; 93005; 96374; 99285-25; A0425; A0429; A9270-GY; J2405

== ENCOUNTER 2024-04-16 11:11 | Inpatient (IN) | payer MEDICARE, OTHER ==
[2024-04-16] MEDS: Sodium Chloride 0.9% 1,000 ML IV SCH ×2 (11:30→14:01)
[2024-04-16 12:21] LABS: HEMATOCRIT 35.4 % (37.0-47.0); HEMOGLOBIN 11.2 g/dL (11.5-16.5); MEAN CORPUSCULAR HEMOGLOBIN 24.5 pg (27.0-32.0); MEAN CORPUSCULAR HGB CONC 31.6 g/dL (31.0-35.0); MEAN PLATELET VOLUME 9.4 fL (6.0-10.0); RED BLOOD CELL COUNT 4.57 M/uL (3.80-5.80); RED CELL DISTRIBUTION WIDTH 18.5 % (11.0-16.0); WHITE BLOOD CELL COUNT,WBC 9.4 K/uL (4.0-11.0)
[2024-04-16] MEDS ORDERED: Sodium Chloride 0.9% 10 ML Syringe FLUSH PRN (12:23)
[2024-04-16 12:33] LABS: ALBUMIN 3.5 g/dL (3.4-5.0); ANION GAP 15.6 mmol/L (5.0-15.0); BILIRUBIN TOTAL 0.9 mg/dL (0.0-1.0); BUN/CREATININE RATIO 13.4 (6-25); CALCIUM 8.8 mg/dL (8.5-10.1); CARBON DIOXIDE,CO2 25.9 mmol/L (21.0-32.0); CREATININE 1.19 mg/dL (0.55-1.02); EST CRCL DRUG DOSING (CG) 26.63 mL/min; POTASSIUM,K 3.5 mmol/L (3.5-5.1); PROTEIN TOTAL,TP 7.1 g/dL (6.4-8.2); TROPONIN I HIGH SENSITIVITY 44.9 pg/ml (<=60.4)
[2024-04-16] MEDS: Metoprolol Tartrate 25 MG Tab PO ONE (14:15)
[2024-04-16 14:22] LABS: MAGNESIUM 1.9 mg/dL (1.8-2.4); PHOSPHORUS 3.1 mg/dL (2.5-4.9)
[2024-04-16] MEDS ORDERED: Nitroglycerin 0.4 MG Tab.SL SL PRN (14:34)
[2024-04-16] MEDS: Metoprolol Tartrate 25 MG Tab ONE (16:36)
[2024-04-17] MEDS: Acetaminophen/Codeine 300-30 MG Tab PO PRN (04:38)
[2024-04-17] MEDS: Isosorbide Mononitrate 30 MG Tab.ER PO SCH (08:05)
[2024-04-17] MEDS: metFORMIN 500 MG Tab.ER PO SCH (08:05)
[2024-04-17] MEDS: Furosemide 20 MG Tab PO SCH (08:06)
[2024-04-17 18:21] LABS: HEMATOCRIT 32.4 % (37.0-47.0); HEMOGLOBIN 10.4 g/dL (11.5-16.5); MEAN CORPUSCULAR HEMOGLOBIN 25.2 pg (27.0-32.0); MEAN CORPUSCULAR HGB CONC 32.1 g/dL (31.0-35.0); MEAN PLATELET VOLUME 9.3 fL (6.0-10.0); RED BLOOD CELL COUNT 4.13 M/uL (3.80-5.80); RED CELL DISTRIBUTION WIDTH 18.7 % (11.0-16.0); WHITE BLOOD CELL COUNT,WBC 7.6 K/uL (4.0-11.0)
[2024-04-17 18:44] LABS: A/G RATIO 0.9 (0.8-2.0); ALBUMIN 3.1 g/dL (3.4-5.0); ANION GAP 14.9 mmol/L (5.0-15.0); BILIRUBIN TOTAL 0.7 mg/dL (0.0-1.0); BUN/CREATININE RATIO 11.2 (6-25); CALCIUM 8.2 mg/dL (8.5-10.1); CARBON DIOXIDE,CO2 23.7 mmol/L (21.0-32.0); CREATININE 1.07 mg/dL (0.55-1.02); EST CRCL DRUG DOSING (CG) 31.12 mL/min; POTASSIUM,K 3.6 mmol/L (3.5-5.1); PROTEIN TOTAL,TP 6.4 g/dL (6.4-8.2)
[2024-04-18 01:01] LABS: APPEARANCE,URINE CLEAR (CLEAR); BILIRUBIN,URINE NEGATIVE (NEGATIVE); COLOR,URINE YELLOW; GLUCOSE,URINE NEGATIVE (NEGATIVE); KETONES,URINE TRACE mg/dL (NEGATIVE); LEUKOCYTE ESTERASE,URINE NEGATIVE (NEGATIVE); NITRITE,URINE NEGATIVE (NEGATIVE); OCCULT BLOOD,URINE NEGATIVE (NEGATIVE); PROTEIN,URINE NEGATIVE (NEGATIVE); UROBILINOGEN,URINE 0.2 E.U./dL (0.2-1.0)
[2024-04-19 11:20] LABS: APPEARANCE,URINE CLEAR (CLEAR); BILIRUBIN,URINE NEGATIVE (NEGATIVE); COLOR,URINE YELLOW; GLUCOSE,URINE NEGATIVE (NEGATIVE); KETONES,URINE NEGATIVE (NEGATIVE); LEUKOCYTE ESTERASE,URINE NEGATIVE (NEGATIVE); NITRITE,URINE NEGATIVE (NEGATIVE); OCCULT BLOOD,URINE NEGATIVE (NEGATIVE); PH,URINE 5.5 (5.0-8.0); PROTEIN,URINE NEGATIVE (NEGATIVE); UROBILINOGEN,URINE 0.2 E.U./dL (0.2-1.0)
[2024-04-20 11:59] VITALS: BP 177/81; PULSE 85
[2024-04-20] MEDS: Metoprolol Tartrate 25 MG Tab PO SCH (13:56)
== END 2024-04-20 15:24 | disposition swing bed (61) | DRG 84 ==
LOC: LB.ED 11:11 → LB.MS 14:31 → UNDOADMIN 14:31 → LB.MS 14:35 → UNDOADMIN 14:35
PROVIDERS: ADMIT Surgery; ATTEND Surgery
DX: S06.6X9A Traumatic subarachnoid hemorrhage with loss of consciousness of unspecified duration, initial encounter (principal); S06.9XAA Unspecified intracranial injury with loss of consciousness status unknown, initial encounter; S09.90XA Unspecified injury of head, initial encounter; R25.1 Tremor, unspecified; M19.90 Unspecified osteoarthritis, unspecified site; M54.50 Low back pain, unspecified; I10 Essential (primary) hypertension; I25.2 Old myocardial infarction; E11.9 Type 2 diabetes mellitus without complications; E66.9 Obesity, unspecified; D64.9 Anemia, unspecified; W19.XXXA Unspecified fall, initial encounter; E86.0 Dehydration; Z95.1 Presence of aortocoronary bypass graft; Z79.84 Long term (current) use of oral hypoglycemic drugs; Z98.890 Other specified postprocedural states; Z79.899 Other long term (current) drug therapy; Z68.33 Body mass index [BMI] 33.0-33.9, adult; W01.10XA Fall on same level from slipping, tripping and stumbling with subsequent striking against unspecified object, initial encounter
CPT/HCPCS: 36415; 70450; 73521; 80053; 82947; 83735; 84100; 84484; 85027; 93005 ×2; 93010; 99285; A9270; J7030 ×3; 81003; 92507-GN; 92523-GN; 97116-GP; 97161-GP; 97165-GO; 97530-GO; 97530-GP; 97535-GO

== ENCOUNTER 2024-04-20 15:24 | Inpatient (IN) | payer MEDICARE, OTHER ==
[2024-04-20] MEDS ORDERED: Nitroglycerin 0.4 MG Tab.SL SL PRN (16:48)
[2024-04-20] MEDS ORDERED: Metoprolol Tartrate 25 MG Tab PO SCH (20:00)
[2024-04-20] MEDS: Metoprolol Tartrate 25 MG Tab PO SCH (20:21)
[2024-04-20] MEDS: Tuberculin, PPD 5 Units/0.1 ML 1 ML MDV IDERM ONE (20:38)
[2024-04-21] MEDS: metFORMIN 500 MG Tab.ER PO SCH (07:24)
[2024-04-21] MEDS: Isosorbide Mononitrate 30 MG Tab.ER PO SCH (07:24)
[2024-04-21] MEDS: Furosemide 20 MG Tab PO SCH (07:27)
[2024-04-21] MEDS: Metoprolol Tartrate 25 MG Tab PO ONE (11:29)
[2024-04-21] MEDS: Labetalol 100 MG/20 ML MDV IVPUSH ONE (14:44)
[2024-04-24 14:38] LABS: BASOPHILS ABSOLUTE AUTO 0.01 K/uL (0.02-0.10); BASOPHILS PERCENT AUTO 0.2 % (0.0-0.5); EOSINOPHILS ABSOLUTE AUTO 0.07 K/uL (0.04-0.40); EOSINOPHILS PERCENT AUTO 1.1 % (1.0-5.0); HEMATOCRIT 33.7 % (37.0-47.0); HEMOGLOBIN 10.5 g/dL (11.5-16.5); LYMPHOCYTES ABSOLUTE AUTO 0.88 K/uL (1.50-4.00); LYMPHOCYTES PERCENT AUTO 13.6 % (20.0-40.0); MEAN CORPUSCULAR HEMOGLOBIN 24.2 pg (27.0-32.0); MEAN CORPUSCULAR HGB CONC 31.2 g/dL (31.0-35.0); MEAN CORPUSCULAR VOLUME 78 fL (76-96); MEAN PLATELET VOLUME 9.2 fL (6.0-10.0); MONOCYTES ABSOLUTE AUTO 0.63 K/uL (0.20-0.80); MONOCYTES PERCENT AUTO 9.8 % (3.0-10.0); NEUTROPHILS ABSOLUTE AUTO 4.86 K/uL (2.00-7.50); NEUTROPHILS PERCENT AUTO 75.3 % (45.0-70.0); PLATELET COUNT,PLT 257 K/uL (150-500); RED BLOOD CELL COUNT 4.33 M/uL (3.80-5.80); RED CELL DISTRIBUTION WIDTH 18.7 % (11.0-16.0); WHITE BLOOD CELL COUNT,WBC 6.5 K/uL (4.0-11.0)
[2024-04-24 14:57] LABS: BUN/CREATININE RATIO 10.9 (6-25); CALCIUM 8.2 mg/dL (8.5-10.1); CARBON DIOXIDE,CO2 30.7 mmol/L (21.0-32.0); CREATININE 1.1 mg/dL (0.55-1.02); EST CRCL DRUG DOSING (CG) 30.27 mL/min
[2024-04-24 15:05] LABS: ANION GAP 11.2 mmol/L (5.0-15.0); POTASSIUM,K 2.9 mmol/L (3.5-5.1)
[2024-04-24] MEDS: Potassium Chloride 20 MEQ Tab.ER PO SCH (19:26)
[2024-04-26 09:23] LABS: BUN/CREATININE RATIO 11.7 (6-25); CALCIUM 8.7 mg/dL (8.5-10.1); CARBON DIOXIDE,CO2 29.5 mmol/L (21.0-32.0); CREATININE 0.94 mg/dL (0.55-1.02); EST CRCL DRUG DOSING (CG) 35.42 mL/min; POTASSIUM,K 3.5 mmol/L (3.5-5.1)
[2024-04-28] MEDS: Potassium Chloride 10 MEQ Tab.ER PO SCH (07:09)
[2024-04-28] MEDS ORDERED: Potassium Chloride 20 MEQ Tab.ER PO SCH (08:00)
[2024-04-30] MEDS: Nystatin Topical Powder 15 GM Bottle ONE (07:53)
[2024-04-30] MEDS: Nystatin Topical Powder 15 GM Bottle TOP SCH (07:54)
[2024-04-30] MEDS: Metoprolol Tartrate 50 MG Tab PO SCH (20:27)
[2024-04-30] MEDS: Isosorbide Mononitrate 30 MG Tab.ER PO SCH (20:29)
[2024-04-30] MEDS: Folic Acid 1 MG Tab PO SCH (20:29)
[2024-04-30] MEDS: Multivitamin Tab PO SCH (20:29)
[2024-05-01 08:37] LABS: ANION GAP 10.6 mmol/L (5.0-15.0); BUN/CREATININE RATIO 12.6 (6-25); CALCIUM 8.9 mg/dL (8.5-10.1); CARBON DIOXIDE,CO2 30.5 mmol/L (21.0-32.0); CREATININE 0.87 mg/dL (0.55-1.02); EST CRCL DRUG DOSING (CG) 38.27 mL/min; MAGNESIUM 1.9 mg/dL (1.8-2.4); POTASSIUM,K 4.1 mmol/L (3.5-5.1)
[2024-05-01 11:42] LABS: APPEARANCE,URINE CLEAR (CLEAR); BILIRUBIN,URINE NEGATIVE (NEGATIVE); COLOR,URINE YELLOW; GLUCOSE,URINE NEGATIVE (NEGATIVE); KETONES,URINE NEGATIVE (NEGATIVE); LEUKOCYTE ESTERASE,URINE TRACE (NEGATIVE); NITRITE,URINE NEGATIVE (NEGATIVE); OCCULT BLOOD,URINE NEGATIVE (NEGATIVE); PROTEIN,URINE NEGATIVE (NEGATIVE); UROBILINOGEN,URINE 0.2 E.U./dL (0.2-1.0)
[2024-05-01 11:44] LABS: RBC,URINE NOT SEEN /HPF; SQUAMOUS EPITHELIAL CELLS,UR FEW /HPF
[2024-05-01] MEDS: Sulfamethoxazole/Trimethoprim 800-160 MG Tab PO SCH (14:32)
[2024-05-03] MEDS: Lisinopril 2.5 MG Tab PO SCH (11:25)
[2024-05-04 09:36] LABS: HEMATOCRIT 35.6 % (37.0-47.0); HEMOGLOBIN 11.4 g/dL (11.5-16.5); MEAN CORPUSCULAR HEMOGLOBIN 24.5 pg (27.0-32.0); MEAN PLATELET VOLUME 9.9 fL (6.0-10.0); RED BLOOD CELL COUNT 4.66 M/uL (3.80-5.80); RED CELL DISTRIBUTION WIDTH 19.1 % (11.0-16.0); WHITE BLOOD CELL COUNT,WBC 4.7 K/uL (4.0-11.0)
[2024-05-04 09:39] LABS: ANION GAP 10.3 mmol/L (5.0-15.0); BUN/CREATININE RATIO 12.6 (6-25); CALCIUM 8.5 mg/dL (8.5-10.1); CARBON DIOXIDE,CO2 29.4 mmol/L (21.0-32.0); CREATININE 1.27 mg/dL (0.55-1.02); EST CRCL DRUG DOSING (CG) 26.22 mL/min; POTASSIUM,K 3.7 mmol/L (3.5-5.1)
[2024-05-04] MEDS ORDERED: Metoprolol Tartrate 50 MG Tab PO SCH (09:45)
[2024-05-04] MEDS: Metoprolol Tartrate 25 MG Tab PO SCH (19:38)
[2024-05-04] MEDS: Isosorbide Mononitrate 30 MG Tab.ER PO SCH (19:55)
[2024-05-05] MEDS: Lactated Ringers 1,000 ML IV SCH (09:32)
[2024-05-06 12:09] LABS: APPEARANCE,URINE CLEAR (CLEAR); BILIRUBIN,URINE NEGATIVE (NEGATIVE); COLOR,URINE YELLOW; GLUCOSE,URINE NEGATIVE (NEGATIVE); KETONES,URINE TRACE mg/dL (NEGATIVE); LEUKOCYTE ESTERASE,URINE NEGATIVE (NEGATIVE); NITRITE,URINE NEGATIVE (NEGATIVE); OCCULT BLOOD,URINE NEGATIVE (NEGATIVE); PROTEIN,URINE NEGATIVE (NEGATIVE)
[2024-05-06] MEDS: Lactated Ringers 1,000 ML IV SCH (13:12)
[2024-05-06 15:31] LABS: HEMATOCRIT 34.5 % (37.0-47.0); HEMOGLOBIN 10.9 g/dL (11.5-16.5); RED BLOOD CELL COUNT 4.47 M/uL (3.80-5.80); WHITE BLOOD CELL COUNT,WBC 4.6 K/uL (4.0-11.0)
[2024-05-06 15:33] LABS: MEAN CORPUSCULAR HEMOGLOBIN 24.4 pg (27.0-32.0); MEAN CORPUSCULAR HGB CONC 31.6 g/dL (31.0-35.0); RED CELL DISTRIBUTION WIDTH 18.9 % (11.0-16.0)
[2024-05-06 15:34] LABS: BUN/CREATININE RATIO 12.2 (6-25); CALCIUM 8.9 mg/dL (8.5-10.1); CARBON DIOXIDE,CO2 28.1 mmol/L (21.0-32.0); CREATININE 1.31 mg/dL (0.55-1.02); EST CRCL DRUG DOSING (CG) 25.42 mL/min; POTASSIUM,K 4.1 mmol/L (3.5-5.1)
[2024-05-07] MEDS ORDERED: LORazepam 0.5 MG Tab PO PRN (21:09)
[2024-05-08] MEDS: Lactobacillus Acidophilus/Lactobacillus Sporogenes (Probiotic) Tab PO SCH (00:35)
[2024-05-10] MEDS: Metoprolol Tartrate 25 MG Tab PO SCH (18:19)
[2024-05-10] MEDS: Nystatin Topical Powder 15 GM Bottle TOP SCH (18:21)
[2024-05-11] MEDS: Multivitamin Tab PO SCH (09:24)
[2024-05-11] MEDS: Folic Acid 1 MG Tab PO SCH (09:25)
[2024-05-12] MEDS: Acetaminophen/Codeine 300-30 MG Tab PO PRN (08:21)
[2024-05-12] MEDS ORDERED: Ondansetron 4 MG Tab.DIS PO PRN (17:35)
[2024-05-12] MEDS: Lisinopril 2.5 MG Tab PO ONE (19:12)
[2024-05-12] MEDS: Sennosides/Docusate Sodium 50-8.6 MG Tab PO SCH (19:12)
[2024-05-13] MEDS: Ondansetron 4 MG Tab.DIS PO PRN (07:57)
[2024-05-13 09:40] LABS: BASOPHILS ABSOLUTE AUTO 0.01 K/uL (0.02-0.10); BASOPHILS PERCENT AUTO 0.1 % (0.0-0.5); EOSINOPHILS ABSOLUTE AUTO 0.05 K/uL (0.04-0.40); EOSINOPHILS PERCENT AUTO 0.5 % (1.0-5.0); HEMATOCRIT 35.1 % (37.0-47.0); HEMOGLOBIN 11.2 g/dL (11.5-16.5); LYMPHOCYTES ABSOLUTE AUTO 1.04 K/uL (1.50-4.00); LYMPHOCYTES PERCENT AUTO 9.4 % (20.0-40.0); MEAN CORPUSCULAR HEMOGLOBIN 24.5 pg (27.0-32.0); MEAN CORPUSCULAR HGB CONC 31.9 g/dL (31.0-35.0); MEAN CORPUSCULAR VOLUME 77 fL (76-96); MEAN PLATELET VOLUME 9.9 fL (6.0-10.0); MONOCYTES ABSOLUTE AUTO 0.76 K/uL (0.20-0.80); MONOCYTES PERCENT AUTO 6.9 % (3.0-10.0); NEUTROPHILS ABSOLUTE AUTO 9.21 K/uL (2.00-7.50); NEUTROPHILS PERCENT AUTO 83.1 % (45.0-70.0); PLATELET COUNT,PLT 221 K/uL (150-500); RED BLOOD CELL COUNT 4.58 M/uL (3.80-5.80); RED CELL DISTRIBUTION WIDTH 18.7 % (11.0-16.0); WHITE BLOOD CELL COUNT,WBC 11.1 K/uL (4.0-11.0)
[2024-05-13 10:01] LABS: ANION GAP 14.3 mmol/L (5.0-15.0); BILIRUBIN TOTAL 0.8 mg/dL (0.0-1.0); BUN/CREATININE RATIO 9.9 (6-25); CALCIUM 8.6 mg/dL (8.5-10.1); CARBON DIOXIDE,CO2 26.7 mmol/L (21.0-32.0); CREATININE 0.91 mg/dL (0.55-1.02); EST CRCL DRUG DOSING (CG) 36.59 mL/min; PROTEIN TOTAL,TP 6.8 g/dL (6.4-8.2)
[2024-05-13] MEDS: Sodium Chloride 0.9% 1,000 ML IV SCH (12:45)
[2024-05-13 14:51] LABS: A/G RATIO 0.8 (0.8-2.0)
[2024-05-13 14:56] LABS: ALBUMIN 3.1 g/dL (3.4-5.0)
[2024-05-13] MEDS: Lisinopril 5 MG Tab PO SCH (20:35)
[2024-05-15] MEDS: Bisacodyl 10 MG Supp RECTAL ONE (08:03)
[2024-05-15] MEDS: Metoprolol Tartrate 5 MG/5 ML SDV IVPUSH SCH (13:10)
[2024-05-15] MEDS ORDERED: LORazepam 2 MG/ML SDV IV PRN (17:33)
[2024-05-15] MEDS ORDERED: Acetaminophen 650 MG Supp RECTAL PRN (17:33)
[2024-05-15] MEDS ORDERED: Ondansetron 4 MG/2 ML SDV IVPUSH PRN (17:33)
[2024-05-15] MEDS ORDERED: Atropine 0.4 MG/ML SDV IV PRN (17:33)
[2024-05-16] MEDS: Morphine 10 MG/ML SDV IV PRN (08:17)
[2024-05-17] MEDS ORDERED: Atropine 1% Ophth Soln 5 ML Bottle SL PRN (12:35)
[2024-05-17] MEDS ORDERED: Morphine Oral Concentrate 20 MG/ML 30 ML Bottle SL PRN (12:40)
[2024-05-17] MEDS ORDERED: LORazepam 1 MG Tab PO PRN (12:44)
== END 2024-05-18 12:13 | DRG 948 ==
LOC: LB.MS 15:24 → UNDOADMIN 15:24
PROVIDERS: ADMIT Surgery; ATTEND Surgery
DX: R53.1 Weakness (principal); Z66 Do not resuscitate; Z51.5 Encounter for palliative care; S06.6X9D Traumatic subarachnoid hemorrhage with loss of consciousness of unspecified duration, subsequent encounter; I10 Essential (primary) hypertension; R53.81 Other malaise; E87.6 Hypokalemia; E11.9 Type 2 diabetes mellitus without complications; E86.0 Dehydration; W19.XXXD Unspecified fall, subsequent encounter
CPT/HCPCS: 36415; 70450; 80048; 80053; 81001; 81003; 82947; 83735; 84132; 85025; 85027; 86580; 92507-GN; 92526-GN; 92610-GN; 97110-GO; 97110-GP; 97112-GP; 97116-GP; 97168-GO; 97530-GO; 97530-GP; 97535-GO; 99305; 99309; 99315; A9270-GY; J2270; J3490; J7030; J7120; Q0162